=== PATIENT | female | born 1970 | race Caucasian/White ===

== ENCOUNTER → 2021-03-12 | Outpatient (CLI) | payer BC ==
--- NOTE | 2021-03-12 08:59 | XR ---
EXAMINATION TYPE: XR lumbosacral spine min 4V DATE OF EXAM: 03/12/2021 COMPARISON: None HISTORY: Sciatica TECHNIQUE: 5 view lumbar spine FINDINGS: There are 5 lumbar-type vertebral bodies. Pedicles are intact. No spondylolytic defects are evident. Some mild disc space narrowing is present L3-4 L4-5. Vertebral body alignment is normal. Re maining disc heights are preserved. IMPRESSION: 1. Degenerative disc changes L3-4 and L4-5.
== END | disposition home or self-care (01) ==
LOC: RADXRMAIN 07:54
PROVIDERS: ATTEND Family Medicine
DX: M51.16 Intervertebral disc disorders with radiculopathy, lumbar region (principal)
CPT/HCPCS: 72110

== ENCOUNTER → 2021-06-22 | Outpatient (CLI) | payer BC ==
--- NOTE | 2021-06-22 08:32 | MR ---
EXAMINATION TYPE: MR lumbar spine wo con DATE OF EXAM: 06/22/2021 COMPARISON: Lumbar spine x-ray March 12, 2021 HISTORY: Lumbar discogenic pain, disc displacement, pain x 2 months TECHNIQUE: Multiplanar, multisequence imaging of the lumbar spine is performed without IV contrast. FINDINGS: Sagittal images of the lumbar spine show vertebral body heights to remain satisfactory. Ali gnment is straightened with grade 1 anterolisthesis L3 on L4 redemonstrated. Multilevel disc desiccat ion with moderate disc space narrowing along with heterogeneous morbid type II endplate changes at L3 -L4 and L4-L5 levels. Mild to moderate anterior spurring at these levels noted. The conus medullaris is normal in position and signal ending mid L1 level. Axial images show T12-L1, L1-L2, and L2-L3 levels all to appear within normal limits. Axial images at the L3-L4 level show spondylolisthesis with mild to moderate facet arthropathy and li gamentum flavum hypertrophy, there is some effacement of the posterolateral thecal sac bilaterally. T here is mild broad-based posterior disc protrusion effacing the anterior thecal sac. There is moderat e to severe right and mild left-sided neural foraminal narrowing. Some encroachment on the right L3 n erve ball present sagittal image 10 as there is additional right foraminal disc protrusion component. Axial images at L4-L5 levels moderate broad-based posterior disc protrusion effacing the anterior the colleen sac. There is [id number] facet arthropathy and ligament flavum hypertrophy effacing the pos terior lateral thecal sac. There is mild left-sided neural foraminal narrowing. Axial images at L5-S1 level mild to moderate facet arthropathy. Spinal canal is preserved. Bilateral neural foramina are patent. Paraspinal muscle bulk is preserved. IMPRESSION: Straightening of lumbar spine with spondylolisthesis and degenerative changes L3-L4 level . Additional fairly moderate degenerative changes noted L4-L5 level as detailed above.
== END | disposition home or self-care (01) ==
LOC: RADMRIMAIN 07:38
PROVIDERS: ATTEND Family Medicine
DX: M43.16 Spondylolisthesis, lumbar region (principal); M47.816 Spondylosis without myelopathy or radiculopathy, lumbar region
CPT/HCPCS: 72148

== ENCOUNTER 2023-06-07 18:20 | Observation (INO) | payer BC ==
--- NOTE | 2023-06-07 19:07 | ED ---
Abdominal Pain HPI - General Chief Complaint: Abdominal Pain Stated Complaint: abdo/stomach pain Time Seen by Provider: 06/07/23 19:06 Source: patient, RN notes reviewed Mode of arrival: ambulatory Limitations: no limitations - History of Present Illness Initial Comments: Patient is a 53 year old female who presents to the emergency department for abdominal pain. This started 2 AM this morning. Patient reports significant pain all over. She feels nauseous no vomiting. No fever or chills. No urinary symptoms or change in bowel habits - Related Data Home Medications Medication Instructions Recorded Confirmed Dextroamphetamine/Amphetamine 5 mg PO DAILY@1200 06/08/23 06/08/23 [Adderall] Dextroamphetamine/Amphetamine 15 mg PO DAILY 06/08/23 06/08/23 [Adderall] Olmesartan Medoxomil [Benicar] 20 mg PO DAILY 06/08/23 06/08/23 Previous Rx's Medication Instructions Recorded Acetaminophen Tab [Tylenol Tab] 1,000 mg PO Q6HR PRN #30 tablet 06/08/23 Ibuprofen [Motrin] 600 mg PO Q8HR PRN #30 tab 06/08/23 Simethicone [Gas-X] 125 mg PO AC-TID PRN #20 capsule 06/08/23 Allergies Allergy/AdvReac Type Severity Reaction Status Date / Time No Known Allergies Allergy Verified 06/08/23 16:41 Review of Systems ROS Statement: Those systems with pertinent positive or pertinent negative responses have been documented in the HPI. ROS Other: All systems not noted in ROS Statement are negative. Past Medical History Past Medical History: Hypertension History of Any Multi-Drug Resistant Organisms: None Reported Past Surgical History: Hernia Repair, Uterine Ablation Past Psychological History: ADD/ADHD Smoking Status: Current every day smoker Past Alcohol Use History: Occasional Past Drug Use History: None Reported General Exam - General Exam Comments Initial Comments: Visual Physical Exam Vital signs reviewed General: Well-appearing, nontoxic, no acute distress. Head: Normocephalic, atraumatic Eyes: PERRLA, EOMI ENT: Airway patent Chest: Nonlabored breathing Skin: No visual rash, normal skin tone Neuro: Alert and oriented 3 Musculoskeletal: No gross abnormalities Limitations: no limitations Respiratory exam: Present: normal lung sounds bilaterally. Absent: respiratory distress, wheezes, rales, rhonchi, stridor Cardiovascular Exam: Present: regular rate, normal rhythm, normal heart sounds. Absent: systolic murmur, diastolic murmur, rubs, gallop, clicks GI/Abdominal exam: Present: soft, tenderness (Generalized), normal bowel sounds. Absent: distended, guarding, rebound, rigid Neurological exam: Present: alert Psychiatric exam: Present: normal affect, normal mood Skin exam: Present: warm, dry, intact, normal color. Absent: rash Course Vital Signs 06/07/23 06/07/23 06/08/23 19:01 22:22 06:37 Temperature 97.9 F Pulse Rate 74 68 77 Respiratory 18 18 20 Rate Blood Pressure 199/92 191/115 118/64 O2 Sat by Pulse 100 100 99 Oximetry Medical Decision Making - Medical Decision Making I performed the QuickNote portion of this chart - Idalmis Wylie PA-C Was pt. sent in by a medical professional or institution (FERNIE Wolff, [facility], urgent care, hospital, or fpc...) When possible be specific @ -No Did you speak to anyone other than the patient for history (EMS, parent, family, police, friend...)? What history was obtained from this source @ -No Did you review nursing and triage notes (agree or disagree)? Why? @ -I reviewed and agree with nursing and triage notes Were old charts reviewed (outside hosp., previous admission, EMS record, old EKG, old radiological studies, urgent care reports/EKG's, fpc records)? Report findings @ -No old charts were reviewed Differential Diagnosis (chest pain, altered mental status, abdominal pain women, abdominal pain men, vaginal bleeding, weakness, fever, dyspnea, syncope, headache, dizziness, GI bleed, back pain, seizure, CVA, palpatations, mental health)? @ -Differential Abdominal Pain Women: Appendicitis, Cholecystitis, diverticulosis, ischemic bowel, pancreatitis, hepatitis, UTI, gastroenteritis, AAA, incarcerated hernia, bowel obstruction, constipation, inflammatory bowel, hepatitis, peptic ulcer disease, splenic infarction, perforated viscus, vulvitis, ovarian torsion, PID, kidney stone, placenta abruption, this is not meant to be an all-inclusive list EKG interpreted by me (3pts min.). @ -As above X-rays interpreted by me (1pt min.). @ -None done CT interpreted by me (1pt min.). @ -None done U/S interpreted by me (1pt. min.). @ -None done What testing was considered but not performed or refused? (CT, X-rays, U/S, mian bs)? Why? @ -None What meds were considered but not given or refused? Why? @ -None Did you discuss the management of the patient with other professionals (professionals i.e. Dr., PA, [facility], lab, RT, psych nurse, licensed social worker, warehouse forklift operator, teacher, staff weapons officer, special education case manager)? Give summary @ -No Was smoking cessation discussed for >3mins.? @ -No Was critical care preformed (if so, how long)? @ -No Were there social determinants of health that impacted care today? How? (Homelessness, low income, unemployed, alcoholism, drug addiction, transportation, low edu. Level, literacy, decrease access to med. care, senior living, rehab)? @ -No Was there de-escalation of care discussed even if they declined (Discuss DNR or withdrawal of care, Hospice)? DNR status @ -No What co-morbidities impacted this encounter? (DM, HTN, Smoking, COPD, CAD, Cancer, CVA, ARF, Chemo, Hep., AIDS, mental health diagnosis, sleep apnea, morbid obesity)? @ -None Was patient admitted / discharged? Hospital course, mention meds given and route, prescriptions, significant lab abnormalities, going to OR and other pertinent info. @ 53-year-old female presenting for abdominal pain. The abdomen is soft there is generalized tenderness. Laboratory studies obtain a leukocytosis. CT interpreted by myself showing acute uncomplicated appendicitis. Patient admitted for further evaluation and management Undiagnosed new problem with uncertain prognosis? @ -No Drug Therapy requiring intensive monitoring for toxicity (Heparin, Nitro, Insulin, Cardizem)? @ -No Were any procedures done? @ -No Diagnosis/symptom? @ -[Appendicitis Acute, or Chronic, or Acute on Chronic? @ -Acute Uncomplicated (without systemic symptoms) or Complicated (systemic symptoms)? @ -Uncomplicated Side effects of treatment? @ -No Exacerbation, Progression, or Severe Exacerbation? @ -No Poses a threat to life or bodily function? How? (Chest pain, [place], [place], pneumonia, PE, COPD, DKA, ARF, appy, cholecystitis, CVA, Diverticulitis, Homicidal, Suicidal, threat to staff... and all critical care pts) @ -Yes Dr. Amador is my attending - Lab Data Result diagrams: 06/07/23 21:06 06/08/23 10:55 Lab Results 06/07/23 06/07/23 Range/Units 21:06 21:06 WBC 7.7 (3.8-10.6) k/uL RBC 3.98 (3.80-5.40) m/uL Hgb 13.0 (11.4-16.0) gm/dL Hct 38.3 (34.0-46.0) % MCV 96.2 (80.0-100.0) fL MCH 32.7 (25.0-35.0) pg MCHC 34.0 (31.0-37.0) g/dL RDW 11.8 (11.5-15.5) % Plt Count 400 (150-450) k/uL MPV 6.7 Neutrophils % 76 % Lymphocytes % 15 % Monocytes % 7 % Eosinophils % 1 % Basophils % 0 % Neutrophils # 5.9 (1.3-7.7) k/uL Lymphocytes # 1.1 (1.0-4.8) k/uL Monocytes # 0.5 (0-1.0) k/uL Eosinophils # 0.1 (0-0.7) k/uL Basophils # 0.0 (0-0.2) k/uL Sodium 129 L (137-145) mmol/L Potassium 4.2 (3.5-5.1) mmol/L Chloride 92 L (98-107) mmol/L Carbon Dioxide 23 (22-30) mmol/L Anion Gap 14 mmol/L BUN 9 (7-17) mg/dL Creatinine 0.54 (0.52-1.04) mg/dL Est GFR (CKD-EPI)AfAm >90 (>60 ml/min/1.73 sqM) Est GFR (CKD-EPI)NonAf >90 (>60 ml/min/1.73 sqM) Glucose 95 (74-99) mg/dL Calcium 10.1 (8.4-10.2) mg/dL Total Bilirubin 0.3 (0.2-1.3) mg/dL AST 48 H (14-36) U/L ALT 28 (4-34) U/L Alkaline Phosphatase 137 H (38-126) U/L Total Protein 8.4 H (6.3-8.2) g/dL Albumin 5.0 (3.5-5.0) g/dL Amylase 63 (30-110) U/L Lipase 54 (23-300) U/L Disposition Clinical Impression: Appendicitis Disposition: ADMITTED IP TO THIS [facility] Condition: Stable
[2023-06-07 21:31] LABS: Basophils % (A) 0 %; Eosinophils # (A) 0.1 k/uL (0-0.7); Eosinophils % (A) 1 %; HCT 38.3 % (34.0-46.0); Lymphocytes # (A) 1.1 k/uL (1.0-4.8); Lymphocytes % (A) 15 %; MCH 32.7 pg (25.0-35.0); MCV 96.2 fL (80.0-100.0); Mean Platelet Volume 6.7; Monocytes # (A) 0.5 k/uL (0-1.0); Monocytes % (A) 7 %; Neutrophils # (A) 5.9 k/uL (1.3-7.7); Neutrophils % (A) 76 %; Platelet Count 400 k/uL (150-450); RBC 3.98 m/uL (3.80-5.40); RDW 11.8 % (11.5-15.5); WBC 7.7 k/uL (3.8-10.6)
[2023-06-07 21:53] LABS: ALT 28 U/L (4-34); AST 48 U/L (14-36); African American GFR (CKD) >90 (>60 ml/min/1.73 sqM); Amylase 63 U/L (30-110); Blood Urea Nitrogen 9 mg/dL (7-17); Carbon Dioxide 23 mmol/L (22-30); Glucose 95 mg/dL (74-99); Non-African American GFR(CKD) >90 (>60 ml/min/1.73 sqM); Total Bilirubin 0.3 mg/dL (0.2-1.3); Total Protein 8.4 g/dL (6.3-8.2)
[2023-06-07 21:58] LABS: Alkaline Phosphatase 137 U/L (38-126); Anion Gap 14 mmol/L; Calcium 10.1 mg/dL (8.4-10.2); Chloride 92 mmol/L (98-107); Lipase 54 U/L (23-300); Potassium 4.2 mmol/L (3.5-5.1); Sodium 129 mmol/L (137-145)
[2023-06-07] MEDS ORDERED: HYDROmorphone 0.5 MG/0.5 ML SYRINGE IVP STA ×2 (22:14→23:04)
[2023-06-07] MEDS ORDERED: ONDANSETRON 4 MG/2 ML VIAL IVP STA (22:15)
[2023-06-07] MEDS ORDERED: SODIUM CHLORIDE 0.9% 1,000 ML IV STA (22:15)
[2023-06-07] MEDS ORDERED: hydrALAZINE HCL 20 MG/ML 1 ML VIAL IVP STA (23:04)
[2023-06-07] MEDS ORDERED: KETOROLAC 15 MG/ML 1 ML VIAL IVP STA (23:04)
[2023-06-08] MEDS ORDERED: hydrALAZINE HCL 20 MG/ML 1 ML VIAL ONE
[2023-06-08] MEDS ORDERED: HYDROmorphone 0.5 MG/0.5 ML SYRINGE ONE
[2023-06-08] MEDS ORDERED: HYDROmorphone 1 MG/ML 1 ML SYRINGE ONE (01:00)
[2023-06-08] MEDS ORDERED: SODIUM CHLORIDE 0.9% 100 ML BAG ONE (02:40)
[2023-06-08] MEDS ORDERED: PIPERACILLIN-TAZOBACTAM 3.375 GM VIAL ONE (02:40)
--- NOTE | 2023-06-08 05:39 | CT ---
EXAMINATION TYPE: CT abdomen pelvis w con CT DLP: 639 mGycm, Automated exposure control for dose reduction was used. DATE OF EXAM: 06/07/2023 10:44 PM COMPARISON: None CLINICAL INDICATION:Female, 53 years old with history of pain; TECHNIQUE: Axial CT of the abdomen and pelvis. Sagittal and coronal reformats were created on a pocketfungames workstation. Contrast used: mL of , heart cc Isovue-300 (none if empty) Oral contrast used: (none if empty) FINDINGS: LOWER CHEST: Unremarkable ABDOMEN LIVER: Focal fatty infiltration adjacent to the falciform ligament in segment IVb GALLBLADDER AND BILE DUCTS: Unremarkable. PANCREAS: Unremarkable. SPLEEN: Unremarkable. ADRENAL GLANDS: Unremarkable. KIDNEYS AND URETERS: No evidence of hydronephrosis or renal calculus. The ureters are unremarkable. PELVIS BLADDER: Unremarkable REPRODUCTIVE: Unremarkable. ABDOMEN & PELVIS STOMACH AND BOWEL: No evidence of bowel obstruction. Appendix is visualized dilated with fluid measur ing up to 10 mm. No evidence for appendicolith. No evidence for perforation. PERITONEUM/RETROPERITONEUM: No evidence of pneumoperitoneum or free fluid. VASCULATURE: No evidence of aortic aneurysm. MUSCULOSKELETAL: No acute osseous abnormalities LYMPH NODES: No gross evidence for lymphadenopathy. SOFT TISSUE/ABDOMINAL WALL: Unremarkable IMPRESSION: Acute uncomplicated appendicitis.
[2023-06-08] MEDS ORDERED: ACETAMINOPHEN TAB 325 MG TAB PO PRN (06:54)
[2023-06-08] MEDS ORDERED: NALOXONE 0.4 MG/ML 1 ML VIAL IV PRN (06:54)
[2023-06-08] MEDS: HYDROmorphone 1 MG/ML 1 ML SYRINGE IVP PRN ×3 (09:06→21:07)
[2023-06-08] MEDS: HEPARIN SODIUM,PORCINE 5,000 UNIT/ML 1 ML VIAL SQ SCH ×2 (10:54→21:06)
[2023-06-08] MEDS: ONDANSETRON 4 MG/2 ML VIAL IVP PRN ×2 (10:55→16:56)
[2023-06-08] MEDS: PIPERACILLIN-TAZOBACTAM 3.375 GM in SODIUM CHLORIDE 0.9% 100 ML IVPB SCH ×3 (10:55→23:57)
[2023-06-08] MEDS: D5-0.45% NACL WITH KCL 20MEQ/L 1,000 ML IV SCH ×2 (10:55→17:03)
--- NOTE | 2023-06-08 11:12 | P.GSHP ---
History of Present Illness H&P Date: 06/08/23 CHIEF COMPLAINT: Abdominal pain HISTORY OF PRESENT ILLNESS: This is a 53-year-old female who presented to the hospital with complaint of right lower quadrant abdominal pain that started yesterday afternoon. She reports that prior to that she was having bloating and some diffuse discomfort and the pain then localized more in the right lower quadrant. She has been feeling hot and nauseous. Patient had a computed tomography scan completed that reported uncomplicated appendicitis. Patient does have a past surgical history that includes a tummy tuck, umbilical hernia repair, uterine ablation and laparoscopy for ovarian cyst. Patient denies any cardiac history. PAST MEDICAL HISTORY: See list. PAST SURGICAL HISTORY: See list. MEDICATIONS: See list. ALLERGIES: See list. SOCIAL HISTORY: No illicit drug use. REVIEW OF SYSTEMS: CONSTITUTIONAL: Denies fever or chills. HEENT: Denies blurred vision, vision changes, or eye pain. Denies hemoptysis ENDOCRINE: Denies heat or cold intolerance. CARDIOVASCULAR: Denies chest pain or pressure. RESPIRATORY: No shortness of breath. GASTROINTESTINAL: Denies abdominal pain. Denies nausea or vomiting. NEURO: Denies history of seizures. PSYCH: No depression or suicidal ideation HEMATOLOGIC: Denies bleeding disorders. LYMPHATIC: The patient denies any lumps and bumps around the neck. GENITOURINARY: Denies any blood in urine or increased urinary frequency. MUSCULOSKELETAL: Denies myalgias. Denies joint swelling. Denies decreased range of motion beyond patients baseline. SKIN: Denies pruitis. Denies rash. PHYSICAL EXAM: VITAL SIGNS: Reviewed GENERAL: Well-developed in no acute distress. HEENT: No sclera icterus. Extraocular movements grossly intact. Moist buccal mucosa. Head is atraumatic, normocephalic. Hears conversational speech. No nasal drainage. NECK: Supple without lymphadenopathy. CHEST: Non-labored respirations and equal bilateral excursions. CARDIOVASCULAR: Palpable 2+ radial pulses. ABDOMEN: Soft. Nondistended. Tenderness with palpation in the right lower quadrant. Patient does have old scarring across the lower abdomen MUSCULOSKELETAL: No clubbing or cyanosis. NEUROLOGIC: No focal or lateralizing signs. Cranial nerves II through XII grossly intact. PSYCH: Appropriate affect. Alert and oriented to person, place and time. SKIN: Well perfused. Good skin turgor. LABORATORY DATA: WBC is 7.7 Hgb 13 platelets 400 Sodium is 129 potassium 4.2 creatinine 0.54 Total bilirubin 0.3 AST 48 ALT 28 alk phos 137 lipase 54 IMAGING: Computed tomography scan abdomen and pelvis acute uncomplicated appendicitis ASSESSMENT: 1. Acute appendicitis 2. Hyponatremia 3. Prior abdominal surgeries PLAN: -Patient scheduled for Robotic appendectomy with Dr. Waggoner -Keep patient nothing by mouth -Repeat sodium level pending -Continue IV antibiotics -Continue pain management -Continue antiemetics -Continue supportive care Physician Tennis [employer] Attendant note has been reviewed by physician. Signing provider agrees with the documented findings, assessment, and plan of care. Past Medical History Past Medical History: Hypertension History of Any Multi-Drug Resistant Organisms: None Reported Past Surgical History: Hernia Repair, Uterine Ablation Past Psychological History: ADD/ADHD Smoking Status: Current every day smoker Past Alcohol Use History: Occasional Past Drug Use History: None Reported Medications and Allergies Home Medications Medication Instructions Recorded Confirmed Type Dextroamphetamine/Amphetamine 5 mg PO DAILY@1200 06/08/23 06/08/23 History [Adderall] Dextroamphetamine/Amphetamine 15 mg PO DAILY 06/08/23 06/08/23 History [Adderall] Olmesartan Medoxomil [Benicar] 20 mg PO DAILY 06/08/23 06/08/23 History Allergies Allergy/AdvReac Type Severity Reaction Status Date / Time No Known Allergies Allergy Verified 06/08/23 07:04 Surgical - Exam Vital Signs Temp Pulse Resp BP Pulse Ox 97.9 F 74 18 199/92 100 06/07/23 19:01 06/07/23 19:01 06/07/23 19:01 06/07/23 19:01 06/07/23 19:01 Results - Labs 06/07/23 21:06 06/07/23 21:06 Abnormal Lab Results - Last 24 Hours (Table) 06/07/23 Range/Units 21:06 Sodium 129 L (137-145) mmol/L Chloride 92 L (98-107) mmol/L AST 48 H (14-36) U/L Alkaline Phosphatase 137 H (38-126) U/L Total Protein 8.4 H (6.3-8.2) g/dL Diabetes panel 06/07/23 Range/Units 21:06 Sodium 129 L (137-145) mmol/L Potassium 4.2 (3.5-5.1) mmol/L Chloride 92 L (98-107) mmol/L Carbon Dioxide 23 (22-30) mmol/L BUN 9 (7-17) mg/dL Creatinine 0.54 (0.52-1.04) mg/dL Glucose 95 (74-99) mg/dL Calcium 10.1 (8.4-10.2) mg/dL AST 48 H (14-36) U/L ALT 28 (4-34) U/L Alkaline Phosphatase 137 H (38-126) U/L Total Protein 8.4 H (6.3-8.2) g/dL Albumin 5.0 (3.5-5.0) g/dL Calcium panel 06/07/23 Range/Units 21:06 Calcium 10.1 (8.4-10.2) mg/dL Albumin 5.0 (3.5-5.0) g/dL Pituitary panel 06/07/23 Range/Units 21:06 Sodium 129 L (137-145) mmol/L Potassium 4.2 (3.5-5.1) mmol/L Chloride 92 L (98-107) mmol/L Carbon Dioxide 23 (22-30) mmol/L BUN 9 (7-17) mg/dL Creatinine 0.54 (0.52-1.04) mg/dL Glucose 95 (74-99) mg/dL Calcium 10.1 (8.4-10.2) mg/dL Adrenal panel 06/07/23 Range/Units 21:06 Sodium 129 L (137-145) mmol/L Potassium 4.2 (3.5-5.1) mmol/L Chloride 92 L (98-107) mmol/L Carbon Dioxide 23 (22-30) mmol/L BUN 9 (7-17) mg/dL Creatinine 0.54 (0.52-1.04) mg/dL Glucose 95 (74-99) mg/dL Calcium 10.1 (8.4-10.2) mg/dL Total Bilirubin 0.3 (0.2-1.3) mg/dL AST 48 H (14-36) U/L ALT 28 (4-34) U/L Alkaline Phosphatase 137 H (38-126) U/L Total Protein 8.4 H (6.3-8.2) g/dL Albumin 5.0 (3.5-5.0) g/dL
[2023-06-08 11:21] LABS: African American GFR (CKD) >90 (>60 ml/min/1.73 sqM); Anion Gap 8 mmol/L; Blood Urea Nitrogen 8 mg/dL (7-17); Calcium 9.3 mg/dL (8.4-10.2); Carbon Dioxide 28 mmol/L (22-30); Chloride 95 mmol/L (98-107); Glucose 113 mg/dL (74-99); Non-African American GFR(CKD) >90 (>60 ml/min/1.73 sqM); Potassium 4.3 mmol/L (3.5-5.1); Sodium 131 mmol/L (137-145)
[2023-06-08] MEDS ORDERED: LACTATED RINGERS 1,000 ML IV ONE ×2 (16:40→18:25)
[2023-06-08] MEDS ORDERED: DEXAMETHASONE SOD PHOSPHATE 4 MG/ML 1 ML VIAL IVP ONE (16:56)
[2023-06-08] MEDS ORDERED: GLYCOPYRROLATE 0.2 MG/ML 2 ML VIAL ONE (17:05)
[2023-06-08] MEDS ORDERED: NEOSTIGMINE 1 MG/ML 10 ML VIAL ONE (17:05)
[2023-06-08] MEDS ORDERED: MIDAZOLAM 2 MG/2 ML VIAL ONE (17:05)
[2023-06-08] MEDS ORDERED: PROPOFOL 10 MG/ML 20 ML VIAL IV ONE (17:05)
[2023-06-08] MEDS ORDERED: fentaNYL (PF) 50 MCG/ML 2 ML AMP ONE (17:05)
[2023-06-08] MEDS ORDERED: ROCURONIUM 10 MG/ML (5 ML VIAL) IV ONE (17:05)
[2023-06-08] MEDS ORDERED: LIDOCAINE 1% INJ 10MG/ML (20 ML MDV) ONE (17:05)
[2023-06-08] MEDS ORDERED: SUCCINYLCHOLINE CHLORIDE 200 MG/10 ML VIAL IV ONE (17:05)
[2023-06-08] MEDS ORDERED: LIDOCAINE 1%-EPI 1:100,000 50 ML VIAL SQ ONE ×2 (17:08→17:35)
--- NOTE | 2023-06-08 18:15 | P.OP ---
Date of Procedure: 06/08/23 Description of Procedure: SURGEON: DUGLAS DICKENS MD Preoperative Diagnosis: 1. Acute appendicitis 2. Hyperlipidemia 3. Attention deficit disorder 4. Tobacco abuse disorder 5. Hypertension Postoperative Diagnosis: 1. Acute appendicitis without rupture 2. Hyperlipidemia 3. Attention deficit disorder 4. Tobacco abuse disorder 5. Hypertension Procedure(s) Performed: 1. Robotic-assisted daVinci Xi laparoscopic appendectomy Anesthesia: GETA, local Estimated Blood Loss (ml): 5 Pathology: other (appendix) Condition: stable Disposition: floor Operative Findings: 1. Acute appendicitis without rupture 2. Terminal ileum unremarkable 3. Cecum unremarkable 4. Sigmoid highly redundant with inactive sigmoid volvulus INDICATIONS: The patient is a 53-year-old male who presents with acute appendicitis. Benefits and risks, including infection, open surgery, and bleeding for additional surgery was discussed at length. Informed consent was obtained. All questions of the patient and family were answered. DESCRIPTION: The patient was transferred to the operating room and placed in supine position. The patient had previously voided. The abdomen was then prepped and draped in standard sterile fashion as Ioban was placed along the abdomen to minimize any contamination of skin floor. After a timeout protocol was performed, attention was then brought to the left upper quadrant whereby a 0 degree 5 mm laparoscopic trocar entry was performed. The abdominal cavity was entered and insufflated to 12 mmHg pressure, which was tolerated well. Diagnostic laparoscopy demonstrated no injury to bowel, viscera or mesentery. Next a robotic 8-mm trocar was placed along the left lower quadrant, 10-cm lateral to the midline. A 12 mm port was placed along the left upper quadrant and another 8-mm port left lateral abdominal wall. Ports were placed 8 cm apart from each other including 15-20 cm away from the target anatomy of the right pelvis. The patient was then placed in Trendelenburg position, at least 7 down and right side up at least 7. The robotic da Anu XI system was primed and docked from the left side of the patient. Using atraumatic graspers and vessel sealer, the robotic system was docked and primed as described. Instruments were interchanged by the assistant speech language pathologist including graspers, robotic stapler and vessel sealer. Next, attention was brought to identify the cecum. A systematic view within the abdominal cavity was started with the small bowel which was unremarkable. The sigmoid colon was highly redundant with inactive sigmoid volvulus The base of the cecum was unremarkable. The body of the appendix was dilated with periappendicitis and nodularity along the tip. No perforation was identified. The appendix was dissected free from its surrounding tissues. Blue 45 mm robotic staple loads were fired along the base of the appendix. The staple line was hemostatic. Hemostasis was checked prior to undocking the robot. The robot was undocked. I re-scrubbed into the case. The specimen was removed from the abdominal cavity with an Endo Catch bag through the 12 mm trocar at the left upper quadrant. All instruments and pneumoperitoneum were evacuated from the abdominal cavity. Local anesthetic was infiltrated to all wounds for postop analgesia. All incisions were also cleansed with diluted hydrogen peroxide. The incisions were closed with 4-0 Monocryl. Exofin glue was applied to the rest of the skin incisions. The patient had tolerated the procedure well. The patient was extubated successfully. The patient was transferred to the postanesthesia care unit in stable condition.
--- NOTE | 2023-06-08 18:15 | P.DS ---
Providers Date of admission: 06/08/23 02:07 Expected date of discharge: 06/08/23 Attending physician: Ai Waggoner Consults: 06/08/23 06:53 Consult Physician Routine Consulting Provider: [facility] Consult Reason/Comments: [facility]hesia [facility] Do you want consulting provider notified?: Yes Placement Type Exists?: Yes Primary care physician: Jeniffer Brock Hospital Course: Postoperative Diagnosis: 1. Acute appendicitis without rupture 2. Hyperlipidemia 3. Attention deficit disorder 4. Tobacco abuse disorder 5. Hypertension INDICATIONS: The patient is a 53-year-old female admitted for appendicitis. She underwent appendectomy. Features of nonperforated appendicitis is found. Prior to discharge, patient was tolerating diet, voiding spontaneously, pain control. Discharge instructions including lifting restrictions were reviewed. Procedures: Procedure(s) Performed: 1. Robotic-assisted daVinci Xi laparoscopic appendectomy Anesthesia: GETA, local Estimated Blood Loss (ml): 5 Pathology: other (appendix) Condition: stable Disposition: floor Operative Findings: 1. Acute appendicitis without rupture 2. Terminal ileum unremarkable 3. Cecum unremarkable 4. Sigmoid highly redundant with inactive sigmoid volvulus Patient Condition at Discharge: Stable Plan - Discharge Summary Discharge Rx Participant: No New Discharge Prescriptions: New Ibuprofen [Motrin] 600 mg PO Q8HR PRN #30 tab PRN Reason: Pain Simethicone [Gas-X] 125 mg PO AC-TID PRN #20 capsule PRN Reason: Pain Acetaminophen Tab [Tylenol Tab] 1,000 mg PO Q6HR PRN #30 tablet PRN Reason: Pain Continue Olmesartan Medoxomil [Benicar] 20 mg PO DAILY Dextroamphetamine/Amphetamine [Adderall] 15 mg PO DAILY Dextroamphetamine/Amphetamine [Adderall] 5 mg PO DAILY@1200 Discharge Medication List Acetaminophen Tab [Tylenol Tab] 1,000 mg PO Q6HR PRN #30 tablet 06/08/23 [Rx] Dextroamphetamine/Amphetamine [Adderall] 5 mg PO DAILY@1200 06/08/23 [History] Dextroamphetamine/Amphetamine [Adderall] 15 mg PO DAILY 06/08/23 [History] Ibuprofen [Motrin] 600 mg PO Q8HR PRN #30 tab 06/08/23 [Rx] Olmesartan Medoxomil [Benicar] 20 mg PO DAILY 06/08/23 [History] Simethicone [Gas-X] 125 mg PO AC-TID PRN #20 capsule 06/08/23 [Rx] Follow up Appointment(s)/Referral(s): Jeniffer Brock MD [Primary Care Provider] - 1-2 days (TELEHEALTH - DR WILL CALL YOU BETWEEN 8 am to 8 pm) Patient Instructions/Handouts: Laparoscopic Appendectomy (GEN) Activity/Diet/Wound Care/Special Instructions: TELEHEALTH - DR WILL CALL YOU BETWEEN 8 am to 8 pm No lifting over 10 pounds in 2 weeks until Jun 22December shower. No bath tub soaks for two weeks until Jun 22 Diet as tolerated. Use Tylenol, simethicone and ibuprofen or Aleve scheduled for the next 24-48 hours for best pain relief. Use ice along incisions for today to prevent swelling. Discharge Disposition: HOME SELF-CARE
[2023-06-08] MEDS: KETOROLAC 15 MG/ML 1 ML VIAL IVP SCH ×2 (18:48→23:57)
[2023-06-08] MEDS: SIMETHICONE 40 MG/0.6 ML DROPS 2,000 MG/30 ML BOTTLE PO SCH ×2 (21:07→22:37)
[2023-06-08] MEDS ORDERED: SIMETHICONE 40 MG/0.6 ML DROPS 2,000 MG/30 ML BOTTLE PO SCH (22:00)
[2023-06-09 00:51] LABS: Appearance,Urine Clear (Clear); Bilirubin,Urine Negative (Negative); Blood,Urine Negative (Negative); Color,Urine Colorless; Glucose,Urine (UA) 1+ (Negative); Ketones,Urine Negative (Negative); Leukocyte Esterase,Urine Negative (Negative); Nitrite,Urine Negative (Negative); Protein,Urine Negative (Negative); Specific Gravity,Urine 1.005 (1.001-1.035); Urobilinogen,Urine <2.0 mg/dL (<2.0)
[2023-06-09 02:27] VITALS: TEMP 98.1
[2023-06-09] MEDS: KETOROLAC 15 MG/ML 1 ML VIAL IVP SCH (06:17)
[2023-06-09] MEDS: D5-0.45% NACL WITH KCL 20MEQ/L 1,000 ML IV SCH (06:18)
[2023-06-09 07:45] VITALS: BP 126/70; PULSE 60; RESP 16
[2023-06-09] MEDS: PIPERACILLIN-TAZOBACTAM 3.375 GM in SODIUM CHLORIDE 0.9% 100 ML IVPB SCH (08:05)
[2023-06-09] MEDS: SIMETHICONE 40 MG/0.6 ML DROPS 2,000 MG/30 ML BOTTLE PO SCH (08:06)
[2023-06-09] MEDS: HEPARIN SODIUM,PORCINE 5,000 UNIT/ML 1 ML VIAL SQ SCH (08:06)
--- NOTE | 2023-06-09 12:31 | P.DS ---
Providers Date of admission: 06/08/23 02:07 Expected date of discharge: 06/09/23 Attending physician: Ai Waggoner Consults: 06/08/23 06:53 Consult Physician Routine Consulting Provider: [facility] Consult Reason/Comments: Anesthesia Care Do you want consulting provider notified?: Yes Placement Type Exists?: Yes Primary care physician: Jeniffer Brock Hospital Course: Discharge diagnoses 1. Acute appendicitis without rupture 2. Hyperlipidemia 3. Attention deficit disorder 4. Tobacco abuse disorder 5. Hypertension Hospital course This is a 44-year-old female who presented with right lower quadrant abdominal pain. She was diagnosed with acute appendicitis. She is status post robotic- assisted laparoscopic appendectomy. Patient was not discharged yesterday because of the anesthesia effects, pain control and decreased oral intake. This morning patient's pain is controlled. She is tolerating diet. She has been up ambulating. She is afebrile. She is having flatus. She is stable for discharge. Physician Rn Iv Therapy note has been reviewed by physician. Signing provider agrees with the documented findings, assessment, and plan of care. Patient Condition at Discharge: Stable Plan - Discharge Summary Discharge Rx Participant: No New Discharge Prescriptions: New Ibuprofen [Motrin] 600 mg PO Q8HR PRN #30 tab PRN Reason: Pain Simethicone [Gas-X] 125 mg PO AC-TID PRN #20 capsule PRN Reason: Pain Acetaminophen Tab [Tylenol Tab] 1,000 mg PO Q6HR PRN #30 tablet PRN Reason: Pain Continue Olmesartan Medoxomil [Benicar] 20 mg PO DAILY Dextroamphetamine/Amphetamine [Adderall] 15 mg PO DAILY Dextroamphetamine/Amphetamine [Adderall] 5 mg PO DAILY@1200 Discharge Medication List Acetaminophen Tab [Tylenol Tab] 1,000 mg PO Q6HR PRN #30 tablet 06/08/23 [Rx] Dextroamphetamine/Amphetamine [Adderall] 5 mg PO DAILY@1200 06/08/23 [History] Dextroamphetamine/Amphetamine [Adderall] 15 mg PO DAILY 06/08/23 [History] Ibuprofen [Motrin] 600 mg PO Q8HR PRN #30 tab 06/08/23 [Rx] Olmesartan Medoxomil [Benicar] 20 mg PO DAILY 06/08/23 [History] Simethicone [Gas-X] 125 mg PO AC-TID PRN #20 capsule 06/08/23 [Rx] Follow up Appointment(s)/Referral(s): Jeniffer Brock MD [Primary Care Provider] - 1-2 days (TELEHEALTH - DR WILL CALL YOU BETWEEN 8 am to 8 pm) Patient Instructions/Handouts: Laparoscopic Appendectomy (GEN) Activity/Diet/Wound Care/Special Instructions: TELEHEALTH - DR WILL CALL YOU BETWEEN 8 am to 8 pm No lifting over 10 pounds in 2 weeks until Jun 22December shower. No bath tub soaks for two weeks until Jun 22 Diet as tolerated. Use Tylenol, simethicone and ibuprofen or Aleve scheduled for the next 24-48 hours for best pain relief. Use ice along incisions for today to prevent swelling. Discharge Disposition: HOME SELF-CARE
== END 2023-06-09 11:06 | disposition home or self-care (01) ==
LOC: EC 18:20 → 4SSUR 06-08 02:07 → INTOOBSV 06-08 02:07 → 4SSUR 06-08 06:19
PROVIDERS: ADMIT Surgery Plastic and Reconstructive Surgery; ATTEND Surgery Plastic and Reconstructive Surgery
DX: K35.80 Unspecified acute appendicitis (principal); E87.1 Hypo-osmolality and hyponatremia; K38.2 Diverticulum of appendix; I10 Essential (primary) hypertension; E78.5 Hyperlipidemia, unspecified; Q43.8 Other specified congenital malformations of intestine; F90.9 Attention-deficit hyperactivity disorder, unspecified type; F17.200 Nicotine dependence, unspecified, uncomplicated; Z79.899 Other long term (current) drug therapy; Z98.890 Other specified postprocedural states
CPT/HCPCS: 44970; S2900; 36415; 74177; 80048; 80053; 81003; 82150; 83690; 85025; 87040; 88304; 96372; 96374; 96375; 96376; 99285